=== PATIENT | female | born 1990 | race Caucasian/White ===

== ENCOUNTER 2017-10-14 23:44 | Inpatient (IN) | payer OTHER ==
[~2017-10-14] VITALS: Ht 160 cm; Wt 70.0 kg
[2017-10-15] MEDS ORDERED: OXYTOCIN 30U/ 0.9% NaCL 500ML 500 ML IV ONE (00:05)
[2017-10-15] MEDS ORDERED: D5%-LACTATED RINGERS 1,000 ML IV SCH (00:05)
[2017-10-15] MEDS ORDERED: OXYTOCIN 30U/ 0.9% NaCL 500ML 500 ML ONE ×2 (00:07→08:06)
[2017-10-15] MEDS ORDERED: NEWBORN KIT ONE (00:07)
[2017-10-15] MEDS: LACTATED RINGERS 1,000 ML IV SCH ×2 (00:18→01:43)
[2017-10-15] MEDS ORDERED: CALCIUM CARBONATE 500 MG TAB.CHEW PO PRN ×2 (00:30→07:30)
[2017-10-15] MEDS ORDERED: FENTANYL PF 100 MCG/2ML IV PRN (00:30)
[2017-10-15] MEDS ORDERED: ONDANSETRON 2MG/ML, 2ML IVPush PRN (00:30)
[2017-10-15] MEDS ORDERED: TERBUTALINE 1 MG/ML, 1ML IVPush PRN (00:30)
[2017-10-15] MEDS ORDERED: FENTANYL PF 100 MCG/2ML IVPush PRN (00:30)
[2017-10-15] MEDS ORDERED: FLU VACC QS2017-18 (36MOS+) UP/PF 0.5 ML IM-VACC ONE (01:00)
[2017-10-15 01:01] LABS: BASOPHILS # (AUTO) 0.05 x10^3/uL (0-0.1); BASOPHILS % (AUTO) 0 % (0-1); EOSINOPHILS # (AUTO) 0.27 x10^3/uL (0-0.4); EOSINOPHILS % (AUTO) 2 % (1-7); LYMPHOCYTES # (AUTO) 2.88 x10^3/uL (1-3.4); LYMPHOCYTES % (AUTO) 22 % (22-44); MD NO; MEAN CORPUSCULAR HEMOGLOBIN 29.9 pg (27.0-34.8); MEAN CORPUSCULAR HGB CONC 33.9 g/dL (32.4-35.8); MEAN CORPUSCULAR VOLUME 88.3 fL (80-100); MEAN PLATELET VOLUME 7.8 fL (7.4-10.4); MONOCYTES # (AUTO) 1.32 x10^3/uL (0.2-0.8); MONOCYTES % (AUTO) 10 % (2-9); NEUTROPHILS # (AUTO) 8.44 x10^3/uL (1.8-6.8); NEUTROPHILS % (AUTO) 65 % (42-75); PLATELET COUNT 264 x10^3/uL (130-400); RED BLOOD COUNT 4.04 x10^6/uL (3.82-5.3); RED CELL DISTRIBUTION WIDTH 13.9 % (9.6-15.2)
[2017-10-15] MEDS ORDERED: MISOPROSTOL 200 MCG TABLET ONE (02:04)
[2017-10-15] MEDS ORDERED: LIDOCAINE 1%, 20ML ONE (02:04)
[2017-10-15] MEDS ORDERED: FENTANYL PF 100 MCG/2ML ONE (06:47)
[2017-10-15] MEDS ORDERED: OXYTOCIN 30U/ 0.9% NaCL 500ML 500 ML IV SCH (07:14)
[2017-10-15] MEDS ORDERED: MISOPROSTOL 200 MCG TABLET PR ONE (07:30)
[2017-10-15] MEDS ORDERED: OXYTOCIN 10 UNITS/ML, 1ML IM PRN (07:30)
[2017-10-15] MEDS ORDERED: OXYcodone/APAP 5/325MG TABLET PO PRN (07:30)
[2017-10-15] MEDS ORDERED: ONDANSETRON 2MG/ML, 2ML IV PRN (07:30)
[2017-10-15] MEDS ORDERED: DOCUSATE 100 MG CAPSULE PO PRN (07:30)
[2017-10-15] MEDS ORDERED: METHYLERGONOVINE 0.2 MG/ML IM PRN (07:30)
[2017-10-15] MEDS ORDERED: ACETAMINOPHEN 325 MG TABLET PO PRN ×2 (07:30)
[2017-10-15] MEDS ORDERED: OXYcodone IR 5MG TABLET PO PRN (07:30)
[2017-10-15] MEDS ORDERED: IBUPROFEN 600 MG TABLET ONE (08:06)
[2017-10-15] MEDS: IBUPROFEN 600 MG TABLET PO PRN ×3 (08:09→20:28)
[2017-10-15] MEDS: OXYTOCIN 30U/ 0.9% NaCL 500ML 500 ML IV SCH ×2 (08:09→17:14)
[2017-10-15] MEDS: PRENATAL VIT/IRON/FA 1 EACH TABLET PO SCH (08:40)
[2017-10-15 08:45] VITALS: BP 115/80
[2017-10-15 12:30] VITALS: BP 120/80
[2017-10-15 15:47] LABS: MEAN CORPUSCULAR HGB CONC 33.9 g/dL (32.4-35.8); MEAN CORPUSCULAR VOLUME 88.7 fL (80-100); MEAN PLATELET VOLUME 7.8 fL (7.4-10.4); PLATELET COUNT 258 x10^3/uL (130-400); RED BLOOD COUNT 3.82 x10^6/uL (3.82-5.3); RED CELL DISTRIBUTION WIDTH 13.6 % (9.6-15.2)
[2017-10-15 16:00] VITALS: BP 115/78
[2017-10-15 16:17] LABS: BASOPHILS # (AUTO) 0.06 x10^3/uL (0-0.1); BASOPHILS % (AUTO) 0 % (0-1); EOSINOPHILS # (AUTO) 0.08 x10^3/uL (0-0.4); EOSINOPHILS % (AUTO) 0 % (1-7); LYMPHOCYTES # (AUTO) 2.14 x10^3/uL (1-3.4); LYMPHOCYTES % (AUTO) 12 % (22-44); MD SCAN; MONOCYTES # (AUTO) 1.25 x10^3/uL (0.2-0.8); MONOCYTES % (AUTO) 7 % (2-9); NEUTROPHILS # (AUTO) 14.94 x10^3/uL (1.8-6.8); NEUTROPHILS % (AUTO) 81 % (42-75)
[2017-10-15 20:00] VITALS: BP 116/78
[2017-10-16] VITALS: BP 118/76
[2017-10-16] MEDS: IBUPROFEN 600 MG TABLET PO PRN ×2 (02:20→08:37)
[2017-10-16 04:00] VITALS: BP 114/72
[2017-10-16] MEDS: PRENATAL VIT/IRON/FA 1 EACH TABLET PO SCH (08:37)
[2017-10-16 09:07] VITALS: BP 116/78
[2017-10-16] MEDS ORDERED: FLU VACC QS2017-18 (36MOS+) UP/PF 0.5 ML IM-VACC ONE (10:32)
[2017-10-16] MEDS ORDERED: OXYC-302 PO (13:45)
== END 2017-10-16 16:42 | disposition home or self-care (01) | DRG 775 ==
LOC: LDOP 23:44 → EDIP 10-15 00:05 → LDIP 10-15 00:19 → 2NW 10-15 08:30
PROVIDERS: ADMIT Obstetrics & Gynecology; ATTEND Obstetrics & Gynecology
PROC: 0UQGXZZ Repair Vagina, External Approach (ICD-10-PCS; principal; 2017-10-15)
PROC: 10E0XZZ Delivery of Products of Conception, External Approach (ICD-10-PCS; 2017-10-15)
DX: O70.0 First degree perineal laceration during delivery (principal); Z37.0 Single live birth; Z3A.39 39 weeks gestation of pregnancy
CPT/HCPCS: 36415; 85025; 86850; 86900; 89060; 90686; J2590; J7120; Q0114